=== PATIENT | male | born 1990 | race Caucasian/White ===

== ENCOUNTER 2017-11-27 01:35 | Emergency (ER) | payer BC ==
[2017-11-27] MEDS ORDERED: TETRACAINE HCL 0.5% 2ML OPTH ONE (01:59)
[2017-11-27] MEDS ORDERED: FLUORESCEIN SODIUM 0.6 MG/WRAP ONE (01:59)
[2017-11-27] MEDS ORDERED: CYCLOPENTOLATE 2% OPTH 2 ML ONE (02:25)
[2017-11-27] MEDS ORDERED: HYDROCODONE/APAP 5/325 MG TAB ONE (03:01)
--- NOTE | 2017-11-27 04:49 | ER ---
Nurse's Notes [facility] Name: Kris Cavazos Jr Age: 27 yrs Sex: Male : 1990 Arrival Date: 11/27/2017 Time: 01:37 Bed 5 Private MD: Diagnosis: Uveitis, Right eye Presentation: 11/27 01:44 Presenting complaint: Patient states: IT STARTED YESTERDAY, I THINK IT MIGHT BE AN bp ALLERGY PROBLEM. Transition of care: patient was not received from another setting of care. Onset of symptoms was November 26, 2017. Initial Sepsis Screen: Does the patient meet any 2 criteria? No. Patient's initial sepsis screen is negative. Does the patient have a suspected source of infection? No. Patient's initial sepsis screen is negative. Care prior to arrival: None. 01:44 Method Of Arrival: Ambulatory bp 01:44 Acuity: EULALIO 4 bp Triage Assessment: 01:45 General: Appears distressed, comfortable, slender, Behavior is cooperative, appropriate bp for age, anxious. Pain: Complains of pain in right eye. EENT: Eyes are tearing on right eye. Neuro: Level of Consciousness is awake, alert, obeys commands, Oriented to person, place, time, situation, Appropriate for age. Cardiovascular: No deficits noted. Respiratory: Airway is patent Respiratory effort is even, unlabored, Respiratory pattern is regular, symmetrical. GI: No signs and/or symptoms were reported involving the gastrointestinal system. : No signs and/or symptoms were reported regarding the genitourinary system. Derm: No signs and/or symptoms reported regarding the dermatologic system. Musculoskeletal: Circulation, motion, and sensation intact. Range of motion: intact in all extremities. Historical: - Allergies: 01:45 No Known Allergies; bp - Home Meds: 01:45 None [Active]; bp - PMHx: 01:45 None; bp - Immunization history:: Adult Immunizations up to date, Last tetanus immunization: < 10 years ago. - Social history:: Smoking status: Patient/guardian denies using tobacco. Screenin:48 Abuse screen: Denies threats or abuse. Denies injuries from another. Nutritional bp screening: No deficits noted. Tuberculosis screening: No symptoms or risk factors identified. Fall Risk None identified. Assessment: :48 General: SEE TRIAGE NOTE. bp 03:07 Reassessment: PT D/C HOME AMBULATORY WITH FAMILY, DX WITH UVEITIS. TO F/U WITH [facility] IN bp THE AM. Vital Signs: 01:45 BP 135 / 87; Pulse 71; Resp 16; Temp 98; Pulse Ox 100% ; Weight 97.52 kg; Height 6 ft. bp 10 in. (208.28 cm); 02:30 BP 123 / 74; Pulse 53; Resp 16; Pulse Ox 99% ; bp 01:45 Body Mass Index 22.48 (97.52 kg, 208.28 cm) bp ED Course: 01:37 Patient arrived in ED. am2 01:38 Dami Abarca, RN is Primary Nurse. bp 01:45 Triage completed. bp 01:45 Arm band placed on. bp 01:48 Patient has correct armband on for positive identification. Bed in low position. Call bp light in reach. Side rails up X2. Adult w/ patient. 01:56 Partha Everett MD is Attending Physician. ps1 02:30 Assist provider with eye exam of right eye. using fluorescein stain, Performed by bp Partha Everett MD Patient tolerated well. CONTACT REMOVED. 02:30 Patient did not have IV access during this emergency room visit. bp 02:54 Sirisha Judge MD is Referral Physician. ps1 Administered Medications: 02:11 Drug: Tetracaine Drops 0.5 % 1 drops Route: Ophthalmic; Site: right eye; tl2 02:27 Drug: Cyclopentolate Drops (1 %) 1 drops Route: Ophthalmic; Site: right eye; bp Outcome: 02:55 Discharge ordered by MD. ps1 03:09 Discharged to home ambulatory, with family. bp 03:09 Condition: stable 03:09 Discharge instructions given to patient, Instructed on discharge instructions, follow up and referral plans. medication usage, Demonstrated understanding of instructions, follow-up care, medications, Prescriptions given X 1. 03:09 Patient left the ED. bp Signatures: Lala Lombardi RN RN tl2 Nahomy Rodriguez am2 Dami Abarca RN RN bp Singer, Phillip, MD MD ps1
--- NOTE | 2017-11-27 04:49 | EDPHYS ---
Physician Documentation [facility] Name: Kris Cavazos Jr Age: 27 yrs Sex: Male : 1990 Arrival Date: 11/27/2017 Time: 01:37 Bed 5 Private MD: ED Physician Partha Everett HPI: 11/27 02:42 This 27 yrs old Male presents to ER via Ambulatory with complaints of right ps1 eye pain. 02:42 The patient is experiencing burning, pain, redness, tearing, The patient sustained ps1 None. to the right eye, caused by an unknown mechanism. Onset: The symptoms/episode began/occurred this morning. Duration: the symptoms are continuous. Aggravated by light, Alleviated by nothing. Associated signs and symptoms: Pertinent negatives: fever, headache. Patient wears soft contacts. Severity of symptoms: in the emergency department the symptoms are worse. The patient has experienced a previous episode. Historical: - Allergies: 01:45 No Known Allergies; bp - Home Meds: 01:45 None [Active]; bp - PMHx: 01:45 None; bp - Immunization history:: Adult Immunizations up to date, Last tetanus immunization: < 10 years ago. - Social history:: Smoking status: Patient/guardian denies using tobacco. ROS: 02:42 Constitutional: Negative for fever, chills, and weight loss. ps1 02:42 Cardiovascular: Negative for chest pain, palpitations, and edema, Respiratory: Negative for shortness of breath, cough, wheezing, and pleuritic chest pain, Abdomen/GI: Negative for abdominal pain, nausea, vomiting, diarrhea, and constipation, MS/Extremity: Negative for injury and deformity, Skin: Negative for injury, rash, and discoloration, Neuro: Negative for headache, weakness, numbness, tingling, and seizure. 02:42 Eyes: Positive for foreign body sensation, itching, pain, redness, Negative for vision loss. Exam: 02:42 Constitutional: This is a well developed, well nourished patient who is awake, alert, ps1 and in no acute distress. Head/Face: Normocephalic, atraumatic. 02:42 Chest/axilla: Normal chest wall appearance and motion. Nontender with no deformity. No lesions are appreciated. Cardiovascular: Regular rate and rhythm. No gallops, murmurs, or rubs. Normal PMI, no JVD. No pulse deficits. Respiratory: Lungs have equal breath sounds bilaterally, clear to auscultation and percussion. No rales, rhonchi or wheezes noted. No increased work of breathing, no retractions or nasal flaring. Abdomen/GI: Soft, non-tender, with normal bowel sounds. No distension or tympany. No guarding or rebound. No evidence of tenderness throughout. Skin: Warm, dry with normal turgor. Normal color with no rashes, no lesions, and no evidence of cellulitis. MS/ Extremity: Pulses equal, no cyanosis. Neurovascular intact. Full, normal range of motion. Neuro: Awake and alert, GCS 15, oriented to person, place, time, and situation. Cranial nerves II-XII grossly intact. Sensory grossly intact. 02:42 Eyes: Pupils: constricted, bilaterally, equal, 2mm, irregularly shaped, Extraocular movements: intact throughout, Conjunctiva: injected, in the right eye, Corneas: abrasion, that is small, on the right, at 89 o'clock, a fluorescein strip employed to appreciate the findings, Anterior chamber: normal, Lids and lashes: everted, no FB. Intraocular pressure: right eye = 12mmHg, left eye = 14mmHg. Vital Signs: 01:45 BP 135 / 87; Pulse 71; Resp 16; Temp 98; Pulse Ox 100% ; Weight 97.52 kg; Height 6 ft. bp 10 in. (208.28 cm); 02:30 BP 123 / 74; Pulse 53; Resp 16; Pulse Ox 99% ; bp 01:45 Body Mass Index 22.48 (97.52 kg, 208.28 cm) bp MDM: 02:33 Patient medically screened. ps1 02:42 Data reviewed: vital signs, nurses notes. ED course: pt appears to have exam c/w ps1 corneal abrasion and right uveitis. Cyclopentolate administered in right eye. Pain improving. Will have patient follow up with Dr. Judge in morning. . 05 02:11 Order name: Eye Tray; Complete Time: 02:11 tl2 05 02:11 Order name: Fluoresene Opth strip; Complete Time: 02:11 tl2 Administered Medications: 02:11 Drug: Tetracaine Drops 0.5 % 1 drops Route: Ophthalmic; Site: right eye; tl2 02:27 Drug: Cyclopentolate Drops (1 %) 1 drops Route: Ophthalmic; Site: right eye; bp Disposition: 11/27/17 02:55 Discharged to Home. Impression: Uveitis, Right eye. - Condition is Stable. - Discharge Instructions: Uveitis. - Prescriptions for Ciloxan 0.3 % Ophthalmic Drops - instill 2 drop by OPHTHALMIC route every 6 hours for 7 days; 5 milliliter. - Medication Reconciliation Form, Thank You Letter, Antibiotic Education, Prescription Opioid Use form. - Follow up: Sirisha Judge MD; When: Tomorrow; Reason: Recheck today's complaints, Continuance of care, Re-evaluation by your physician. Follow up: Emergency Department; When: As needed; Reason: Fever > 102 F, Worsening of condition. - Problem is new. - Symptoms have improved. Signatures: Lala Lombardi RN RN tl2 Dami Abarca RN RN bp Partha Everett MD MD ps1
== END 2017-11-27 03:09 | disposition home or self-care (01) ==
LOC: ER 01:35
DX: H20.9 Unspecified iridocyclitis (principal)
CPT/HCPCS: 99283